=== PATIENT | male | born 1960 | race Caucasian/White ===

== ENCOUNTER 2023-08-02 07:18 | Emergency (ER) | payer BC, SELFPAY ==
[2023-08-02 07:24] VITALS: BP 151/94
[2023-08-02 08:21] LABS: % Basophils 0.5 % (0-2); % Eosinophils 1.1 % (0-6); % Immature Granulocytes 0.5 % (0-0.5); % Lymphocytes 20.6 % (20.5-51.1); % Monocytes 14.9 % (1.7-9.3); % Neutrophils 62.4 % (42.2-75.2); Absolute Eosinophils 0.1 10^3/uL (0-0.7); Absolute Lymphocytes 1.3 10^3/uL (1.2-3.4); Hematocrit 44.4 % (39.0-52.0); Hemoglobin 15.6 g/dL (13.0-18.0); Mean Corp Hgb Conc. 35.1 g/dL (33.0-37.0); Mean Corpuscular Hgb 30.2 pg (27.0-31.0); Mean Corpuscular Volume 85.9 fL (80.0-94.0); Mean Platelet Volume 10.7 fL (7.4-10.4); Nucleated Red Blood Cells % 0 % (-); Platelet Count 161 10^3/uL (130-400); Red Blood Cell Count 5.17 10^6/uL (4.70-6.10); Red Cell Dist. Width 12.6 % (11.5-14.5); White Blood Cell Count 6.5 10^3/uL (4.8-10.8)
--- NOTE | 2023-08-02 08:28 | ED.GENMED ---
History of Present Illness
General
Chief Complaint: Fever
Source: patient
Exam Limitations: none
Time Seen by Provider: 08/02/23 08:03
Nursing documentation reviewed up to this point in time: agreed with
Travel History
Have you had any contact with someone who has COVID-19?: No
Do you have any symptoms of coronavirus? Fever > 100 degrees, chills, cough, shortness of breath, sore throat, loss of taste or smell, muscle aches, or headache?: No
History of Present Illness
History of Present Illness:
63-year-old male presents with fever onset 3-4 nights ago associated with some headache malaise temp of 101.8 developed a red rash on his right upper leg thought he may have was bitten by spider is not sure, had a tick bite last year, none this year
though he is outside a lot, no other rashes no abdominal pain no nausea or vomiting, light do not bother his eyes
Past History
Past History
ED Past Medical History: Other (Pilonidal abscess)
ED Past Surgical History: Orthopedic
Social History
Tobacco: Non-smoker
Alcohol: None
Drug: None
Personal:
Living: with family
Employment: Employed
Review of Systems
Review of Systems
All Other Systems: Not applicable
Constitutional: Reports fever, weight loss and fatigue
EENT: Reports no symptoms
Respiratory: Reports no symptoms; Denies cough or trouble breathing
Cardiac: Reports no symptoms
ABD/GI: Reports no symptoms; Denies abdominal pain
: Reports no symptoms
Musculoskeletal: Denies muscle stiffness
Skin: Reports rash
Neurological: Reports headache
Endocrine: Reports no symptoms
Hematologic/Lymphatic: Reports no symptoms
Psychiatric: Reports no symptoms
Phy Exam
Physical Exam
Physical Exam:
Physical Exam
General: Nontoxic 63 male
Neck: No photophobia no pain with flexion of the neck
Heart: Regular without murmur
Lungs: no acute respiratory distress. clear bilaterally
Abdomen: Nontender
Neuro: alert and oriented. no focal neurological deficits
Skin: 4 x 4 cm circular red slightly raised nontender area of the right upper thigh
Psychiatric: well kept. interactive and cooperative
Extremities: no edema.
Course
Orders/Labs/Results
Orders:
Orders
08/02/23 07:55
Complete Blood Count/With Diff Urgent
Comprehensive Metabolic Panel Urgent
Lactate Level [Lactic Acid] Urgent
Lyme Progressive Urgent
08/02/23 08:16
0.9% Sodium Chloride 1000 ml [Nss] 1,000 ml IV BOLUS
Acetaminophen [Tylenol] 1,000 mg PO NOW STA
CefTRIAXone [Rocephin] 1,000 mg IV NOW STA
08/02/23 08:31
Ibuprofen [Motrin] 600 mg PO NOW STA
08/02/23 09:15
Blood Culture Q30M
[facility] Source: Blood/Venous
Specimen Description:
08/02/23 09:45
Blood Culture Q30M
[facility] Source: Blood/Venous
Specimen Description:
Abnormal Lab Results
08/02/23
07:55
MPV 10.7 H fL
(7.4-10.4)
Absolute Monos (auto) 1.0 H 10^3/uL
(0.1-0.6)
Monocytes % 14.9 H %
(1.7-9.3)
Glucose 125 H mg/dl
(70-99)
08/02/23 07:55
08/02/23 07:55
Vital Signs
Initial and Last Documented VS:
Initial Vital Signs
Temp Pulse Resp BP Pulse Ox
98.0 F 70 18 151/94 100
08/02/23 07:24 08/02/23 07:24 08/02/23 07:24 08/02/23 07:24 08/02/23 07:24
Last Documented Vital Signs
Temp Pulse Resp BP Pulse Ox
98.0 F 70 18 151/94 100
08/02/23 07:24 08/02/23 07:24 08/02/23 07:24 08/02/23 07:24 08/02/23 07:24
MDM/Problems Addressed
Differential Diagnosis Includes:
Viral syndrome tickborne illness Lyme, doubt [facility] HEAD infection by history physical, no respiratory complaints
MDM/Problems Addressed:
Fever rash headache
Acute Exacerbation and/or Progression of Chronic Illness:
Prior tick bite
*Pulse Oximetry
Patient hypoxic: no
*Critical Care Note
Total Time (30-74mins, 75-104mins- exclusive of procedures): Not Applicable
Update Note
Update Note:
Update, labs are noted cultures pending
will treat empirically with doxycycline
ED Attending Note
-
Portions of this chart may have been created with voice recognition software.� Occasional wrong word or��sound alike� substitutions may have occurred due to the inherent limitations of voice recognition software.
Discharge Plan
Departure
Patient Disposition: Home (Routine Discharge)
Date of Disposition: 08/02/23
Time of Disposition: 09:25
Patient with high blood pressure during this ER visit?: No
Condition: Good
Discharge Problem:
Fever, Rash
Prescriptions:
No Action
clindamycin HCl 300 MG capsule
300 mg PO TID Qty: 30 0RF
Referrals:
Mc Dallas MD [Family Provider] - Next open appointment
Activity Restrictions/Additional Instructions:
Ibuprofen every 6-8 hours
Acetaminophen every 4-6 hours
Doxycycline antibiotic twice a day for 10 days
Follow-up with your family doctor, return to the ER for worsening symptoms
Interventions
Interventions:
*ED COVID-19 Vaccine History Last Done: 08/02/23 07:25
Discharge Date and Time
Print Language: HUNGARIAN
[2023-08-02 08:40] LABS: ALT (SGPT) 44 U/L (0-50); AST (SGOT) 38 U/L (17-59); Albumin 4.3 g/dl (3.5-5.0); Alkaline Phosphatase 72 U/L (38-126); Blood Urea Nitrogen 12 mg/dl (9-20); Calcium 9.6 mg/dl (8.4-10.2); Carbon Dioxide 29 mmol/L (22-30); Chloride 102 mmol/L (98-107); Glucose 125 mg/dl (70-99); Potassium 3.9 mmol/L (3.5-5.1); Sodium 139 mmol/L (135-145); Total Bilirubin 0.5 mg/dl (0.2-1.3); Total Protein 6.8 g/dl (6.3-8.2); eGFR > 60.00
[2023-08-02] MEDS: NSS 1000 IV (09:16)
[2023-08-02] MEDS: ROCEPHIN 1000 MG IV (09:17)
[2023-08-02] MEDS: MOTRIN 600 MG PO (09:17)
[2023-08-03 14:39] LABS: Lyme Antibody Screen, EIA Negative (Negative)
== END 2023-08-02 09:45 | disposition home or self-care (01) ==
LOC: EMR 07:18
PROVIDERS: EMERGENCY PHYSICIAN Emergency Medicine; FAMILY PHYSICIAN Family Medicine
DX: R21 Rash and other nonspecific skin eruption (principal); R50.9 Fever, unspecified; R51.9 Headache, unspecified; R53.81 Other malaise; R11.0 Nausea; M43.6 Torticollis
CPT/HCPCS: 99284; 96374; 96361; 80053; 83605; 85025; 86618; 87040